=== PATIENT | female | born 1930 | race Caucasian/White ===

== ENCOUNTER 2018-07-30 21:11 | Inpatient (IN) | payer OTHER ==
[~2018-07-30] VITALS: Ht 172.7 cm; Wt 74.0 kg
[~2018-07-30 21:11] MED LIST: LEVOTHYROXINE 100 MCG INJ IVPush ONE
[2018-07-30] MEDS ORDERED: CEFTRIAXONE 2,000 MG in SODIUM CHLORIDE 0.9% 50 ML IVPB ONE (21:30)
[2018-07-30] MEDS ORDERED: HYDROCORTISONE 100 MG INJ. IV ONE (21:30)
[2018-07-30] MEDS ORDERED: VANCOMYCIN PER PHARMACY IV ONE (21:30)
[2018-07-30] MEDS ORDERED: AMPICILLIN 2 GM in SODIUM CHLORIDE 0.9% 100 ML IV SCH (21:30)
[2018-07-30] MEDS ORDERED: SODIUM CHLORIDE 0.9% 1,000ML IVBOLUS ONE (21:30)
[2018-07-30] MEDS ORDERED: VANCOMYCIN 1,300 MG in SODIUM CHLORIDE 0.9% 250 ML IV ONE (22:00)
[2018-07-30 22:24] LABS: BASOPHILS # (AUTO) 0.01 x10^3/uL (0-0.1); BASOPHILS % (AUTO) 0 % (0-1); EOSINOPHILS % (AUTO) 0 % (1-7); LYMPHOCYTES # (AUTO) 0.83 x10^3/uL (1-3.4); LYMPHOCYTES % (AUTO) 9 % (22-44); MD NO; MEAN CORPUSCULAR HEMOGLOBIN 32.4 pg (27.0-34.8); MEAN CORPUSCULAR HGB CONC 33.8 g/dL (32.4-35.8); MONOCYTES # (AUTO) 0.23 x10^3/uL (0.2-0.8); MONOCYTES % (AUTO) 3 % (2-9); NEUTROPHILS # (AUTO) 8.02 x10^3/uL (1.8-6.8); NEUTROPHILS % (AUTO) 88 % (42-75); PLATELET COUNT 153 x10^3/uL (130-400); RED BLOOD COUNT 4.88 x10^6/uL (3.82-5.3); RED CELL DISTRIBUTION WIDTH 14.8 % (9.6-15.2)
[2018-07-30 22:28] LABS: INTERNATIONAL NORMALIZED RATIO 2.38 (0.93-1.1); PROTHROMBIN TIME 24.4 Seconds (9.6-11.5)
[2018-07-30 22:30] LABS: ALBUMIN 3.5 g/dL (3.4-5.0); ANION GAP 15 mmol/L (5-15); CALCIUM 8.8 mg/dL (8.5-10.1); CHLORIDE 99 mmol/L (98-107)
[2018-07-30 22:31] LABS: SALICYLATE LEVEL < 1.7 mg/dL (2.8-20.0)
[2018-07-30 22:33] LABS: ALANINE AMINOTRANSFERASE 35 U/L (12-78); ALKALINE PHOSPHATASE 55 U/L (45-117); BILIRUBIN,TOTAL 0.8 mg/dL (0.2-1.0); CREATININE 1.38 mg/dL (0.55-1.02); TOTAL PROTEIN 7.5 g/dL (6.4-8.2)
[2018-07-30 22:43] LABS: FREE T4 (FREE THYROXINE) 1.23 ng/dL (0.76-1.46); THYROID STIMULATING HORMONE 0.563 mIU/L (0.358-3.740); TROPONIN I 0.331 ng/mL (0.000-0.045)
[2018-07-30 22:45] LABS: ACETAMINOPHEN < 2 mcg/mL (10-30)
[2018-07-30 22:51] LABS: AMPHETAMINE SCREEN, URINE Negative (Negative); BARBITURATE SCREEN, URINE Negative (Negative); BENZODIAZEPINE SCREEN, URINE Negative (Negative); CANNABINOID SCREEN, URINE Negative (Negative); COCAINE SCREEN, URINE Negative (Negative); METHADONE SCREEN, URINE Negative (Negative); OPIATE SCREEN, URINE Negative (Negative)
[2018-07-30 22:52] LABS: ACETONE, SERUM Trace (10mg/dL) mg/dL (Negative)
[2018-07-30 22:55] LABS: CREATINE KINASE, TOTAL 2957 U/L (26-192)
--- NOTE | 2018-07-30 23:01 | NUR ---
ACCOMPANIED PT TO CT AND BACK. PT REMAINS ON ALL MONITORING. POC DISCUSSED WITH FAMILY.
[2018-07-30] MEDS ORDERED: LEVO75TA5 PO (23:06)
[2018-07-30] MEDS ORDERED: SIMV20TA3 PO (23:06)
[2018-07-30] MEDS ORDERED: ENAL10TA PO (23:06)
[2018-07-30] MEDS ORDERED: WARF3TAB52 PO (23:06)
[2018-07-30] MEDS ORDERED: ATEN25TA PO (23:06)
--- NOTE | 2018-07-30 23:44 | NUR ---
LATE ENTRY FOR ARRIVAL TIME: BARE HUGGER APPLIED. FLUIDS INFUSING THROUGH FLUID WARMER. MULTIPLE BLANKETS APPLIED.
[2018-07-30 23:52] LABS: CULTURE INDICATED? YES; MICROSCOPIC AUTO
--- NOTE | 2018-07-30 23:57 | NUR ---
syed de leon at [facility] refused pt admit there. Pt to be admit to icu here.
[2018-07-31] MEDS ORDERED: CEFTRIAXONE PMX 2GM/50ML 50 ML ONE (00:01)
--- NOTE | 2018-07-31 00:57 | NUR ---
FAMILY AT BEDSIDE UPSET ABOUT LENGTH OF WAIT IN ED. FAMILY WAS EXPLAINED WE MUST WAIT FOR HOSPITALIST ORDERS PRIOR TO TRANSPORTING TO CCU. THEY STATE UNDERSTANDING. MULTIPLE CALLED TO HOSPITALIST HAVE BEEN MADE. ED MD HAS ALSO CALLED [facility] TWICE REQUESTING HE COME SEE THE PT. INTERIOR SURFACE INSULATION WORKER HAS SPOKEN WITH FAMILY. ALL QUESTIOSN ANSWERED.
--- NOTE | 2018-07-31 01:14 | NUR ---
[facility] AT BEDSIDE
[2018-07-31] MEDS ORDERED: OXYcodone IR 5MG TABLET PO PRN (01:30)
[2018-07-31] MEDS ORDERED: BISACODYL 10 MG SUPP PR PRN ×2 (01:30→13:00)
[2018-07-31] MEDS ORDERED: hydrALAzine 20 MG/ML, 1ML IVPush PRN (01:30)
[2018-07-31] MEDS ORDERED: DOCUSATE 100 MG CAPSULE PO PRN (01:30)
[2018-07-31] MEDS ORDERED: morphine SULFATE 10 MG/ML, 1ML IVPush PRN (01:30)
[2018-07-31] MEDS ORDERED: POLYETHYLENE GLYCOL 17 GM PACKET PO PRN (01:30)
[2018-07-31] MEDS ORDERED: VANCOMYCIN PER PHARMACY MC PRN (01:30)
[2018-07-31] MEDS ORDERED: LABETALOL 5MG/ML, 20ML IVPush PRN (01:30)
[2018-07-31] MEDS ORDERED: PROMETHAZINE 25 MG/ML, 1ML IM PRN (01:30)
[2018-07-31] MEDS ORDERED: ONDANSETRON ODT 4 MG PO PRN (01:30)
[2018-07-31] MEDS ORDERED: ONDANSETRON 2MG/ML, 2ML IVPush PRN (01:30)
--- NOTE | 2018-07-31 01:39 | NUR ---
PTS LEFT UPPER ARM WAS FOUND TO BE EDEMATOUS. IV NOT FLUSHING. IV HAS INFILTRATED. IV REMOVED.
[2018-07-31 02:00] LABS: FREE T4 (FREE THYROXINE) 2.04 ng/dL (0.76-1.46)
[2018-07-31 02:06] LABS: THYROID STIMULATING HORMONE 0.361 mIU/L (0.358-3.740)
[2018-07-31] MEDS: PIPERACILLIN/TAZO/PMX 3.375GM 50 ML IV SCH ×4 (02:24→22:09)
[2018-07-31] MEDS: SODIUM CHLORIDE 0.9% 1,000 ML IV SCH ×3 (02:25→22:09)
[2018-07-31] MEDS ORDERED: PHARMACOKINETIC CONSULTATION MC ONE (02:30)
[2018-07-31] MEDS ORDERED: WARFARIN 3 MG TABLET PO-COUM ONE ×2 (02:30→18:00)
[2018-07-31] MEDS ORDERED: PHARMACOKINETIC MONITORING MC PRN (02:30)
[2018-07-31 02:50] VITALS: BP 129/62
[2018-07-31 04:00] VITALS: BP 128/82
[2018-07-31 04:41] LABS: BASOPHILS # (AUTO) 0.03 x10^3/uL (0-0.1); BASOPHILS % (AUTO) 0 % (0-1); EOSINOPHILS % (AUTO) 0 % (1-7); LYMPHOCYTES # (AUTO) 0.44 x10^3/uL (1-3.4); LYMPHOCYTES % (AUTO) 8 % (22-44); MD NO; MEAN CORPUSCULAR HGB CONC 33.6 g/dL (32.4-35.8); MEAN CORPUSCULAR VOLUME 95.3 fL (80-100); MEAN PLATELET VOLUME 8.9 fL (7.4-10.4); MONOCYTES # (AUTO) 0.31 x10^3/uL (0.2-0.8); MONOCYTES % (AUTO) 5 % (2-9); NEUTROPHILS # (AUTO) 5.11 x10^3/uL (1.8-6.8); NEUTROPHILS % (AUTO) 87 % (42-75); PLATELET COUNT 147 x10^3/uL (130-400); RED BLOOD COUNT 4.54 x10^6/uL (3.82-5.3); RED CELL DISTRIBUTION WIDTH 14.9 % (9.6-15.2)
[2018-07-31 04:59] LABS: ANION GAP 9 mmol/L (5-15); CALCIUM 8.2 mg/dL (8.5-10.1); CHLORIDE 109 mmol/L (98-107)
[2018-07-31 05:02] LABS: ALANINE AMINOTRANSFERASE 32 U/L (12-78); ALKALINE PHOSPHATASE 42 U/L (45-117); BILIRUBIN,TOTAL 0.7 mg/dL (0.2-1.0); CHOL/HDL RATIO 2.2; CHOLESTEROL, TOTAL 140 mg/dL (140-239); CREATININE 1.14 mg/dL (0.55-1.02); HDL CHOL % 46 % (28-40); HDL CHOLESTEROL (DIRECT) 65 mg/dL (40-60); LDL CHOLESTEROL,CALCULATED 58 mg/dL (54-169); LDL/HDL RATIO 0.9 (0.5-3.0); TOTAL PROTEIN 6.5 g/dL (6.4-8.2); TRIGLYCERIDES 84 mg/dL (50-200); VLDL CHOLESTEROL 17 mg/dL (0-25)
[2018-07-31] MEDS ORDERED: ALBUTEROL SULFATE 2.5 MG/3 ML NPPB PRN (06:00)
[2018-07-31] MEDS ORDERED: PROPOFOL 100 ML IV PRN ×2 (08:30→12:47)
[2018-07-31] MEDS: ATENOLOL 25 MG TABLET PO SCH (09:00)
[2018-07-31] MEDS ORDERED: SODIUM CHLORIDE 0.9% 1,000ML IVBOLUS ONE (09:00)
[2018-07-31 09:10] LABS: FIO2 60 %
[2018-07-31] MEDS ORDERED: SODIUM CHLORIDE 0.9% 1,000ML IVBOLUS PRN (09:30)
[2018-07-31] MEDS ORDERED: MAGNESIUM SULFATE 3 GM in SODIUM CHLORIDE 0.9% 100 ML IV ONE (10:00)
[2018-07-31 10:15] LABS: TROPONIN I 0.766 ng/mL (0.000-0.045)
[2018-07-31] MEDS ORDERED: ETOMIDATE 40 MG/20 ML ONE (12:00)
[2018-07-31] MEDS ORDERED: SUCCINYLCHOLINE 20 MG/ML, 10ML ONE (12:00)
[2018-07-31] MEDS ORDERED: PROPOFOL 10 MG/ML, 100ML IV ONE (12:00)
[2018-07-31] MEDS: LEVOTHYROXINE 75 MCG TABLET PO SCH (12:39)
[2018-07-31] MEDS: ACETAMINOPHEN 325 MG TABLET PO PRN (12:39)
[2018-07-31] MEDS ORDERED: FAMOTIDINE 20 MG/2 ML IV SCH (13:00)
[2018-07-31] MEDS: INSULIN LISPRO 100 UNITS/ML, PEN SQ-INSULIN SCH ×3 (13:00→21:00)
[2018-07-31] MEDS ORDERED: SENNOSIDES 8.8 MG/5 ML ORAL SOL NG PRN (13:00)
[2018-07-31] MEDS ORDERED: SENNA/DOCUSATE TABLET NG PRN (13:00)
[2018-07-31] MEDS ORDERED: LACTULOSE 20 GM/30 ML UDC NG PRN (13:00)
[2018-07-31] MEDS ORDERED: FENTANYL PF 100 MCG/2ML IVPush PRN (13:00)
[2018-07-31] MEDS: ALBUTEROL/IPRATROPIUM 2.5MG/0.5MG, 3 ML INLINE SCH ×3 (13:00→23:41)
[2018-07-31] MEDS ORDERED: PHARMACY MAY ADJ FOR RENAL FX MC SCH (13:00)
[2018-07-31] MEDS ORDERED: LIDOCAINE-MPF 1%, 2ML ENDO PRN (13:00)
[2018-07-31] MEDS ORDERED: DEXTROSE 4 GM TAB.CHEW PO PRN (13:00)
[2018-07-31] MEDS ORDERED: GLUCAGON 1 MG IM PRN (13:00)
[2018-07-31] MEDS ORDERED: DEXTROSE 50%, 50ML SYRINGE IVPush PRN (13:00)
[2018-07-31 17:55] LABS: TROPONIN I 0.723 ng/mL (0.000-0.045)
[2018-07-31] MEDS ORDERED: SODIUM CHLORIDE FLUSH 10ML SYR IVF SCH (21:00)
[2018-07-31 21:26] LABS: TROPONIN I 0.524 ng/mL (0.000-0.045)
[2018-07-31] MEDS: SIMVASTATIN 20 MG TABLET PO SCH (22:09)
[2018-08-01] VITALS (7 sets, daily range): BP systolic 103–157; BP diastolic 51–76
[2018-08-01] MEDS: ALBUTEROL/IPRATROPIUM 2.5MG/0.5MG, 3 ML INLINE SCH ×6 (03:10→22:17)
[2018-08-01] MEDS: PIPERACILLIN/TAZO/PMX 3.375GM 50 ML IV SCH ×4 (03:11→20:01)
[2018-08-01 06:06] LABS: MEAN CORPUSCULAR HEMOGLOBIN 32.2 pg (27.0-34.8); MEAN CORPUSCULAR HGB CONC 33.9 g/dL (32.4-35.8); MEAN CORPUSCULAR VOLUME 95.1 fL (80-100); MEAN PLATELET VOLUME 9.5 fL (7.4-10.4); PLATELET COUNT 119 x10^3/uL (130-400); RED BLOOD COUNT 3.71 x10^6/uL (3.82-5.3); RED CELL DISTRIBUTION WIDTH 15.6 % (9.6-15.2)
[2018-08-01 06:16] LABS: INTERNATIONAL NORMALIZED RATIO 4.87 (0.93-1.1)
[2018-08-01 06:22] LABS: PROTHROMBIN TIME 48.6 Seconds (9.6-11.5)
[2018-08-01 06:36] LABS: ANION GAP 12 mmol/L (5-15); CALCIUM 7.3 mg/dL (8.5-10.1); CHLORIDE 118 mmol/L (98-107); CREATININE 1.26 mg/dL (0.55-1.02)
[2018-08-01 06:38] LABS: CREATINE KINASE, TOTAL 927 U/L (26-192)
[2018-08-01 06:42] LABS: MD YES
[2018-08-01 06:44] LABS: ANISOCYTOSIS 1+; BAND#(MANUAL) 2.65 x10^3/uL; BANDS%(MANUAL) 39 % (0-7); MONOS% (MANUAL) 3 % (2-9); PMNS WITH VACUOLES 1+
[2018-08-01 06:45] LABS: <PLATELET ESTIMATE> DECREASED; <PLT MORPHOLOGY> NORMAL PLT MORPH; ECHINOCYTES 1+
[2018-08-01 06:46] LABS: SEGS% (MANUAL) 50 % (42-75)
[2018-08-01 06:47] LABS: LYMPH#(MANUAL) 0.54 x10^3/uL (1-3.4); LYMPHS% (MANUAL) 8 % (22-44)
[2018-08-01] MEDS: SODIUM CHLORIDE 0.9% 1,000 ML IV SCH (07:58)
[2018-08-01] MEDS: INSULIN LISPRO 100 UNITS/ML, PEN SQ-INSULIN SCH ×3 (08:07→20:00)
[2018-08-01] MEDS ORDERED: VANCOMYCIN 1,300 MG in SODIUM CHLORIDE 0.9% 250 ML IV SCH (10:00)
[2018-08-01] MEDS ORDERED: HEPARIN 25,000 UNITS/500ML PMX 500 ML IV PRN (10:30)
[2018-08-01] MEDS: LEVOTHYROXINE 75 MCG TABLET PO SCH (10:35)
[2018-08-01] MEDS: FAMOTIDINE 20 MG/2 ML IV SCH (10:35)
[2018-08-01] MEDS: ATENOLOL 25 MG TABLET PO SCH (10:35)
--- NOTE | 2018-08-01 11:14 | NUR ---
TF GOAL: w/ propofol: PROMOTE @ 60ML/HR off propofol: PROMOTE @ 70ML/HR
[2018-08-01] MEDS ORDERED: PHYTONADIONE 10 MG in SODIUM CHLORIDE 0.9% 50 ML IV ONE (12:00)
[2018-08-01] MEDS: ACETAMINOPHEN 325 MG TABLET PO PRN (13:44)
[2018-08-01 15:24] LABS: MICROSCOPIC INDICATED
[2018-08-01] MEDS: SIMVASTATIN 20 MG TABLET PO SCH (20:01)
[2018-08-02] VITALS (10 sets, daily range): BP systolic 125–163; BP diastolic 52–84
[2018-08-02] MEDS: ALBUTEROL/IPRATROPIUM 2.5MG/0.5MG, 3 ML INLINE SCH ×2 (02:15→06:33)
[2018-08-02] MEDS: PIPERACILLIN/TAZO/PMX 3.375GM 50 ML IV SCH (02:57)
[2018-08-02] MEDS: INSULIN LISPRO 100 UNITS/ML, PEN SQ-INSULIN SCH (02:58)
[2018-08-02 05:31] LABS: INTERNATIONAL NORMALIZED RATIO 1.13 (0.93-1.1); PROTHROMBIN TIME 11.9 Seconds (9.6-11.5)
[2018-08-02 05:43] LABS: MEAN CORPUSCULAR HEMOGLOBIN 32.4 pg (27.0-34.8); MEAN CORPUSCULAR HGB CONC 34.2 g/dL (32.4-35.8); MEAN CORPUSCULAR VOLUME 94.7 fL (80-100); RED BLOOD COUNT 3.08 x10^6/uL (3.82-5.3); RED CELL DISTRIBUTION WIDTH 16.1 % (9.6-15.2)
[2018-08-02 05:51] LABS: CHLORIDE 117 mmol/L (98-107)
[2018-08-02 06:01] LABS: ANION GAP 9 mmol/L (5-15); CREATININE 1.07 mg/dL (0.55-1.02)
[2018-08-02 06:19] LABS: MD YES
[2018-08-02 06:23] LABS: MEAN PLATELET VOLUME 9.8 fL (7.4-10.4); PLATELET COUNT 110 x10^3/uL (130-400)
[2018-08-02 06:26] LABS: ANISOCYTOSIS 1+; BAND#(MANUAL) 0.75 x10^3/uL; BANDS%(MANUAL) 11 % (0-7); LYMPH#(MANUAL) 0.34 x10^3/uL (1-3.4); LYMPHS% (MANUAL) 5 % (22-44); MONOS#(MANUAL) 0.14 x10^3/uL (0.3-2.7); MONOS% (MANUAL) 2 % (2-9); SEG#(MANUAL) 5.58 x10^3/uL (1.8-6.8); SEGS% (MANUAL) 82 % (42-75)
[2018-08-02 06:27] LABS: <PLATELET ESTIMATE> DECREASED; <PLT MORPHOLOGY> NORMAL PLT MORPH
[2018-08-02] MEDS ORDERED: CEFTRIAXONE PMX 1GM/50ML 50 ML IV SCH (07:00)
[2018-08-02] MEDS ORDERED: POTASSIUM CHLORIDE 10% 40 MEQ/30 ML UDC PO ONE (07:00)
[2018-08-02] MEDS ORDERED: INSULIN LISPRO 100 UNITS/ML, PEN SQ-INSULIN SCH ×2 (07:00→17:00)
[2018-08-02] MEDS: ATENOLOL 25 MG TABLET PO SCH (09:20)
[2018-08-02] MEDS: LEVOTHYROXINE 75 MCG TABLET PO SCH (09:20)
[2018-08-02] MEDS: FAMOTIDINE 20 MG/2 ML IV SCH (09:20)
[2018-08-02] MEDS ORDERED: ALBUTEROL/IPRATROPIUM 2.5MG/0.5MG, 3 ML INLINE PRN (10:00)
[2018-08-02] MEDS: ACETAMINOPHEN 325 MG TABLET PO PRN (14:24)
[2018-08-02] MEDS ORDERED: WARFARIN 3 MG TABLET PO-COUM SCH (18:00)
[2018-08-02] MEDS ORDERED: SCOPOLAMINE PATCH, 1.5MG PATCH.TD72 TD SCH (21:00)
[2018-08-02] MEDS ORDERED: MORPHINE SULFATE 4 MG/ML, 1ML IVPush PRN (21:00)
[2018-08-02] MEDS ORDERED: ATROPINE OPHTH SOLN 1%, 2ML BC PRN (21:00)
[2018-08-02] MEDS ORDERED: MORPHINE SULFATE 4 MG/ML, 1ML IVPush ONE (21:00)
[2018-08-02] MEDS ORDERED: LORazepam 2 MG/ML, 1ML IVPush PRN (21:00)
[2018-08-02] MEDS ORDERED: LORazepam 2 MG/ML, 1ML IVPush ONE (21:00)
[2018-08-02] MEDS: MORPHINE SULFATE 4 MG/ML, 1ML IVPush PRN ×2 (21:47→22:33)
== END 2018-08-03 03:04 | disposition expired | DRG 871 ==
LOC: ED 22:23 → EDIP 23:32 → CSU 07-31 01:49
PROVIDERS: ADMIT Internal Medicine; ATTEND Internal Medicine
PROC: 0T9B70Z Drainage of Bladder with Drainage Device, Via Natural or Artificial Opening (ICD-10-PCS; 2018-07-30)
PROC: 0BH17EZ Insertion of Endotracheal Airway into Trachea, Via Natural or Artificial Opening (ICD-10-PCS; principal; 2018-07-31)
PROC: 5A1945Z Respiratory Ventilation, 24-96 Consecutive Hours (ICD-10-PCS; 2018-07-31)
PROC: 0T9B70Z Drainage of Bladder with Drainage Device, Via Natural or Artificial Opening (ICD-10-PCS; 2018-08-01)
PROC: 30233K1 Transfusion of Nonautologous Frozen Plasma into Peripheral Vein, Percutaneous Approach (ICD-10-PCS; 2018-08-01)
DX: A41.9 Sepsis, unspecified organism (principal); J96.01 Acute respiratory failure with hypoxia; J69.0 Pneumonitis due to inhalation of food and vomit; N17.0 Acute kidney failure with tubular necrosis; I21.4 Non-ST elevation (NSTEMI) myocardial infarction; I63.9 Cerebral infarction, unspecified; G93.41 Metabolic encephalopathy; E87.2 Acidosis; M62.82 Rhabdomyolysis; N39.0 Urinary tract infection, site not specified; D68.59 Other primary thrombophilia; I50.22 Chronic systolic (congestive) heart failure; Z99.11 Dependence on respirator [ventilator] status; I74.2 Embolism and thrombosis of arteries of the upper extremities; G93.1 Anoxic brain damage, not elsewhere classified; Z66 Do not resuscitate; Z51.5 Encounter for palliative care; E03.9 Hypothyroidism, unspecified; R40.2430 Glasgow coma scale score 3-8, unspecified time; I11.0 Hypertensive heart disease with heart failure; I27.20 Pulmonary hypertension, unspecified; I48.2 Chronic atrial fibrillation; E78.5 Hyperlipidemia, unspecified; B96.20 Unspecified Escherichia coli [E. coli] as the cause of diseases classified elsewhere; Z95.0 Presence of cardiac pacemaker; Z90.49 Acquired absence of other specified parts of digestive tract; Z91.013 Allergy to seafood; Z74.01 Bed confinement status; Z79.01 Long term (current) use of anticoagulants; Z79.899 Other long term (current) drug therapy
CPT/HCPCS: 36415; 36600; 70450; 71045; 80048; 80053; 80061; 80307; 80329; 81001; 82010; 82140; 82533; 82550; 82803; 82962; 83036; 83605; 83735; 84100; 84439; 84443; 84478; 84484; 85025; 85610; 86078; 86850; 86900; 87040; 87070; 87077; 87081; 87086; 87186; 87205; 93005; 93306; 93880; 93930; 94002; 94003; 94640; 96361; 96365; 96366; 96368; 96375; 99291; G0378; J0290; J0696; J2543; J2704; J3370; J3430; J3475; J7620; G0480; J0330; J1720; J1815; J2060; J3490; J7030; J7050; P9017